=== PATIENT | male | born 1990 | race Caucasian/White ===

== ENCOUNTER 2017-04-03 20:41 | Emergency (ER) | payer OTHER ==
[2017-04-03] MEDS ORDERED: IBUPROFEN 800 MG TABLET PO ONE (23:27)
--- NOTE | 2017-04-03 23:32 | ER Document Report ---
ED General - General Chief Complaint: Chest Pain Stated Complaint: CHEST PAIN,SHORTNESS OF BREATH Time seen by provider: 23:07 Mode of Arrival: Ambulatory Information source: Patient TRAVEL OUTSIDE OF THE [place] IN LAST 30 DAYS: No - HPI Notes: Patient is a otherwise healthy 26-year-old white male [employer] presents to the emergency department with report of intermittent episodes of chest pain that he' s had for several months, occurring more at rest and when he "thinks about it". Patient exercises on a regular interval at an intense rate., and he reports no specific exertional component to his chest pain. He does describe a very minimal nonproductive cough with some seasonal allergy symptoms. He also reports some left jaw pain that he localizes to the left TMJ region that is worse after chewing. He denies any dental pain. He reports no dyspnea or nausea. He denies any fever or chills. He's been seen previously for chest pain and had a troponin of 0.01 by his report and the troponin was unchanged on repeat evaluation. He reported otherwise negative lab work and a normal chest x-ray. Family history no cardiac disease. Patient's a nonsmoker. Past Medical History - General Information source: Patient - Social History Smoking Status: Never Smoker Cigarette use (# per day): No Smoking Education Provided: No Frequency of alcohol use: Occasional Drug Abuse: None Lives with: Spouse/Significant other Family History: None. denies: CAD Patient has suicidal ideation: No Patient has homicidal ideation: No Renal/ Medical History: Denies: Hx Peritoneal Dialysis Review of Systems - Review of Systems Notes: REVIEW OF SYSTEMS: CONSTITUTIONAL : Denies fever, chills, or sweats. Denies recent illness. EENT: Denies eye, ear, throat, or mouth pain or symptoms. Denies nasal or sinus congestion or discharge. Denies throat, tongue, or mouth swelling or difficulty swallowing. CARDIOVASCULAR: Denies palpitations or racing or irregular heart beat. Denies ankle edema. RESPIRATORY: Denies cough, cold, or chest congestion. Denies shortness of breath, difficulty breathing, or wheezing. GASTROINTESTINAL: Denies abdominal pain or distention. Denies nausea, vomiting , or diarrhea. Denies blood in vomitus, stools, or per rectum. Denies black, tarry stools. Denies constipation. GENITOURINARY: Denies difficulty urinating, painful urination, burning, frequency, blood in urine, or discharge. MUSCULOSKELETAL: Denies back or neck pain or stiffness. Denies joint pain or swelling. SKIN: Denies rash, lesions or sores. HEMATOLOGIC : Denies easy bruising or bleeding. LYMPHATIC: Denies swollen, enlarged glands. NEUROLOGICAL: Denies confusion or altered mental status. Denies passing out or loss of consciousness. Denies dizziness or lightheadedness. Denies headache. Denies weakness or paralysis or loss of use of either side. Denies problems with gait or speech. Denies sensory loss, numbness, or tingling. Denies seizures. PSYCHIATRIC: Denies depression, suicidal ideation, or homicidal ideation. Patient does report some anxiety. ALL OTHER SYSTEMS REVIEWED AND NEGATIVE. Dictation was performed using [employer] voice recognition software Physical Exam - Vital signs Vitals: Temp Pulse Resp BP Pulse Ox 98.2 F 66 18 145/87 H 100 04/03/17 21:49 04/03/17 21:49 04/03/17 21:49 04/03/17 21:49 04/03/17 21:49 - Notes Notes: PHYSICAL EXAMINATION: GENERAL: Well-appearing, well-nourished and in no acute distress. HEAD: Atraumatic, normocephalic. EYES: Pupils equal round and reactive to light, extraocular movements intact, sclera anicteric, conjunctiva are normal. ENT: Nares patent, oropharynx clear without exudates. Moist mucous membranes. Patient has some left TMJ pain on exam. No erythema. Dentition is intact and good. No evidence for any grinding of the teeth. NECK: Normal range of motion, supple without lymphadenopathy LUNGS: Breath sounds clear to auscultation bilaterally and equal. No wheezes rales or rhonchi. HEART: Regular rate and rhythm without murmurs. ABDOMEN: Soft, nontender, nondistended abdomen. No guarding, no rebound. No masses appreciated. Musculoskeletal: Normal range of motion, no pitting or edema. No cyanosis. NEUROLOGICAL: Cranial nerves grossly intact. Normal speech, normal gait. Normal sensory, motor exams PSYCH: Normal mood, normal affect. SKIN: Warm, Dry, normal turgor, no rashes or lesions noted. Course - Re-evaluation Re-evalutation: 04/04/17 01:22 X-ray and labs and EKG are normal. There is no evidence for hypertensive cardiomyopathy or acute ischemia or electrolyte imbalance or anemia or pneumonia. Question a stress component. We will treat for allergic rhinitis and advise an outpatient echocardiogram and will treat for TMJ. 04/04/17 01:23 Repeat blood pressure 123/71. - Vital Signs Vital signs: Temp Pulse Resp BP Pulse Ox 98.2 F 66 16 145/87 H 100 04/03/17 21:49 04/03/17 21:49 04/03/17 23:17 04/03/17 21:49 04/03/17 23:26 - Laboratory Result Diagrams: 04/04/17 00:09 04/04/17 00:09 Laboratory results interpreted by me: 04/04/17 00:09 BUN 27 H - EKG Interpretation by Il EKG shows normal: Sinus rhythm Rate: Normal Additional EKG results interpreted by ok: 04/03/17 23:31 EKG as interpreted by ok showed normal sinus rhythm heart rate of 73. Patient was borderline for left ventricular hypertrophy on exam. There is no gross evidence for acute MS or ischemia. There is no old EKG available for comparison. Patient denied any chest pain while in the emergency department. He was given ibuprofen for left TMJ pain. Discharge - Discharge Clinical Impression: TMJ (temporomandibular joint syndrome) Seasonal allergic rhinitis Qualifiers: Allergic rhinitis trigger: pollen Qualified Code(s): J30.1 - Allergic rhinitis due to pollen Chest pain Qualifiers: Chest pain type: unspecified Qualified Code(s): R07.9 - Chest pain, unspecified Condition: Stable Disposition: HOME, SELF-CARE Instructions: Chest Pain of Unclear Cause ([facility]), Non-Sedating Prescription Antihistamine ([facility]) Additional Instructions: Temporomandibular Joint Syndrome (TMJ) You have TMJ syndrome. TMJ syndrome is caused by injury or degeneration of the temporomandibular joint, where the jaw joins the skull. Symptoms can include pain in the christianity or in front of the ear, headaches, clicking with jaw motion, locking of the jaw, and trouble fitting the teeth together. Some cases of TMJ syndrome go away with antiinflammatory medicine. Others require surgery. Sometimes a dental appliance at night helps. You may require special x-rays to evaluate the joint. If the symptoms resolve quickly, you may not need further care. If symptoms are chronic or recurrent, we'll refer you to a specialist for evaluation. The joint should be rested. Stay on a diet that requires no chewing -- such as milkshakes, applesauce, and puddings. Avoid any motion of the jaw which provokes pain. Periodic ice packs help decrease swelling and pain. You should follow up as instructed, and call the physician if you have any problems. Prescriptions: Cyclobenzaprine HCl [Flexeril 10 mg Tablet] 10 mg PO QHS #30 tablet Ibuprofen 800 mg PO Q8HP PRN #60 tablet PRN Reason: Loratadine [Claritin 10 mg Tablet] 10 mg PO DAILY #30 tablet Forms: Return to Work
[2017-04-04 00:22] LABS: ABSOLUTE EOSINOPHILS # (AUTO) 0.4 10^3/uL (0.0-0.6); ABSOLUTE LYMPHOCYTES (AUTO) 3.4 10^3/uL (0.5-4.7); ABSOLUTE MONOCYTES (AUTO) 0.7 10^3/uL (0.1-1.4); ABSOLUTE NEUT (AUTO) 3.4 10^3/uL (1.7-8.2); BASOPHILS % (AUTO) 0.2 % (0-2); EOSINOPHILS % (AUTO) 5.2 % (0-6); HEMATOCRIT 45.7 % (37.9-51.0); HEMOGLOBIN 16.4 g/dL (13.5-17.0); HGB HCT DIFFERENCE 3.5; LYMPHOCYTES % (AUTO) 42.9 % (13-45); MEAN CORPUSCULAR HEMOGLOBIN 31.9 pg (27.0-33.4); MEAN CORPUSCULAR HGB CONC 35.8 g/dL (32.0-36.0); MEAN CORPUSCULAR VOLUME 89 fl (80-97); MONOCYTES % (AUTO) 8.5 % (3-13); RED BLOOD COUNT 5.13 10^6/uL (4.35-5.55); RED CELL DISTRIBUTION WIDTH 12.7 % (11.5-14.0); SEGMENTED NEUTROPHILS % (AUTO) 43.2 % (42-78); WHITE BLOOD COUNT 7.9 10^3/uL (4.0-10.5)
[2017-04-04 00:38] LABS: ALANINE AMINOTRANSFERASE 44 U/L (21-72); ALBUMIN 4.7 g/dL (3.5-5.0); ALKALINE PHOSPHATASE 55 U/L (38-126); ANION GAP 15 (5-19); ASPARTATE AMINO TRANSFERASE 45 U/L (17-59); BILIRUBIN,DIRECT 0.1 mg/dL (0.0-0.4); BILIRUBIN,TOTAL 0.5 mg/dL (0.2-1.3); BLOOD UREA NITROGEN 27 mg/dL (7-20); CALCIUM 9.9 mg/dL (8.4-10.2); CARBON DIOXIDE 23 mmol/L (22-30); CHLORIDE 102 mmol/L (98-107); CREATININE RESULT 1.16 mg/dL (0.52-1.25); GLUCOSE 94 mg/dL (75-110); POTASSIUM 4.4 mmol/L (3.6-5.0); TOTAL PROTEIN 7.5 g/dL (6.3-8.2)
[2017-04-04 00:48] LABS: CREATINE KINASE MB 2.33 ng/mL (<4.55)
[2017-04-04 00:49] LABS: TROPONIN I < 0.012 ng/mL
[2017-04-04 03:02] VITALS: BP 124/87
--- NOTE | 2017-04-04 08:15 | EKG REPORT ---
SEVERITY:- ABNORMAL ECG - SINUS RHYTHM PROBABLE LEFT VENTRICULAR HYPERTROPHY : Confirmed by: Ryan Mckeon MD 04-Apr-2017 08:14:41
== END 2017-04-04 03:02 | disposition home or self-care (01) ==
LOC: ER 20:41
DX: R07.9 Chest pain, unspecified (principal); M26.622 Arthralgia of left temporomandibular joint; J30.1 Allergic rhinitis due to pollen; R05 Cough; F41.9 Anxiety disorder, unspecified
CPT/HCPCS: 36415; 71020; 80053; 82553; 83735; 84484; 85025; 93005; 93010; 99285

== ENCOUNTER 2018-08-06 08:04 | Emergency (ER) | payer OTHER ==
[2018-08-06 08:09] VITALS: BP 147/75
--- NOTE | 2018-08-06 08:17 | ER Document Report ---
HPI - HPI Patient complains to provider of: worried he has blood clot Onset: Other - 3 days Pain Level: 2 Context: 28 yo [facility] [place] c/o crampy left calf pain. Lifts weights but did not do any leg work after it started to hurt. Did 3.5 mile run on Saturday. No ches pain or SOB. Mom is Doctor in another state and she told him to get checked since he was so worried. Associated Symptoms: None Exacerbated by: Denies Relieved by: Denies - ROS ROS below otherwise negative: Yes Systems Reviewed and Negative: Yes All other systems reviewed and negative Past Medical History - General Information source: Patient - Social History Smoking Status: Never Smoker Occupation: [employer] [facility] [place] Lives with: Family Family History: None - Medical History Medical History: Negative Renal/ Medical History: Denies: Hx Peritoneal Dialysis Surgical Hx: Negative Vertical Provider Document - CONSTITUTIONAL Agree With Documented VS: Yes Exam Limitations: No Limitations General Appearance: No Apparent Distress - INFECTION CONTROL TRAVEL OUTSIDE OF THE [place] IN LAST 30 DAYS: No - MUSCULOSKELETAL/EXTREMETIES Musculoskeletal/Extremeties: MAEW, FROM, Tender - mid posterior left calf muscle. negative: Edema, Eccymosis - NEURO Level of Consciousness: Awake Motor/Sensory: No Motor Deficit, No Sensory Deficit Notes: 2+ DP Course - Re-evaluation Re-evalutation: 08/06/18 10:50 Prelim venous Doppler ultrasound reading is negative Dr. Aileen Becerril will be calling with the results patient states he will call me back for the reading 08/06/18 13:20 final report negative per dr becerril, spoke with patient over the phone to give him the results. - Vital Signs Vital signs: Temp Pulse Resp BP Pulse Ox 97.6 F 61 14 147/75 H 99 08/06/18 08:08 08/06/18 08:08 08/06/18 08:08 08/06/18 08:08 08/06/18 08:08 Discharge - Discharge Clinical Impression: Left calf pain Condition: Good Disposition: HOME, SELF-CARE Instructions: Acetaminophen, Ibuprofen (General) ([facility]), Warm Packs ([facility]) Additional Instructions: Warm compress [place] Return to the emergency room any concerns Call me in 2 hours for the venous Doppler ultrasound result at [phone] Forms: Return to Work
--- NOTE | 2018-08-06 12:25 | XCELERA REPORT ---
[address] [place] [facility] [id number] Lower Extremity Venous Evaluation Procedure: Color flow and duplex imaging of the veins of the left lower extremity as well as the right Common Femoral vein. Right Sided Venous Evaluation The right common femoral vein is fully compressible. Spontaneous and phasic flow is present in the right common femoral vein. Left Sided Venous Evaluation Normal vessel filling wall to wall, compression and augmentation as well as Colour flow down to the infrageniculate veins. Interpretation Summary No duplex evidence of DVT or obstruction in the left lower extremity nor in the right Common Femoral vein. Name: SATINDER DÍAZ Age: 28 yrs Gender: Male : 1990 Patient Status: Emergency Patient Location: ER Study Date: 08/06/2018 10:19 AM Reason For Study: left leg Ordering Physician: VIKRAM ARSHAD Performed By: Lynn Alvarado : VIKRAM ARSHAD > Jorgito Becerril
== END 2018-08-06 10:56 | disposition home or self-care (01) ==
LOC: ER 08:04
DX: M79.662 Pain in left lower leg (principal)
CPT/HCPCS: 93971; 99284

== ENCOUNTER 2019-01-19 13:46 | Emergency (ER) | payer OTHER ==
[2019-01-19 14:32] VITALS: BP 146/70
--- NOTE | 2019-01-19 15:44 | ER Document Report ---
ED General - General Chief Complaint: Abscess Stated Complaint: POSSIBLE ABSCESS/TAILBONE Time Seen by Provider: 01/19/19 15:24 Primary Care Provider: ANDREAS LONDON MD [KENDALL SOSA] - Follow up tomorrow Notes: Patient is a 28-year-old male who presents to the emergency department with a chief complaint of an abscess at his coccyx area and right outer buttock area close to his anus, but not in his anus. He has had pain in the area of the past 4 days. He exercises frequently and has had history of abscesses in the past. He denies any fever, night sweats, or any other problems at this time. He has no past medical history. He states he does sweat a lot when he exercises. TRAVEL OUTSIDE OF THE [place] IN LAST 30 DAYS: No - Related Data Allergies/Adverse Reactions: No Known Allergies Allergy (Verified 01/19/19 13:49) Past Medical History - Social History Smoking Status: Never Smoker Frequency of alcohol use: Rare Drug Abuse: None Family History: None Renal/ Medical History: Denies: Hx Peritoneal Dialysis Review of Systems - Review of Systems Notes: REVIEW OF SYSTEMS: CONSTITUTIONAL : Denies recent illness. Denies recent unintentional weight loss. Denies fever, chills, or sweats. EENT: Denies eye, ear, throat, or mouth pain, discharge, or symptoms. Denies nasal or sinus congestion. CARDIOVASCULAR: Denies chest pain. RESPIRATORY: Denies shortness of breath, cough, congestion, difficulty breathing, or wheezing. GASTROINTESTINAL: Denies nausea, vomiting, and diarrhea. Denies abdominal pain. Denies constipation. GENITOURINARY: Denies difficulty urinating, burning, blood in urine, urgency or frequency. MUSCULOSKELETAL: Denies neck and back pain. Denies joint pain or swelling. SKIN: See HPI HEMATOLOGIC : Denies easy bruising or bleeding. LYMPHATIC: Denies swollen, painful, enlarged glands. NEUROLOGICAL: Denies no numbness or tingling denies weakness. Denies headache. Denies altered mental status. Denies alteration in speech. PSYCHIATRIC: Denies stress, anxiety, alteration in sleep patterns, or depression. All other systems reviewed and negative. Physical Exam - Vital signs Vitals: Temp Pulse Resp BP Pulse Ox 98.2 F 67 18 146/70 H 100 01/19/19 14:29 01/19/19 14:29 01/19/19 14:29 01/19/19 14:29 01/19/19 14:29 - Notes Notes: PHYSICAL EXAMINATION: GENERAL: Appears well, healthy, well-nourished, no acute distress. HEAD: Normocephalic, atraumatic. EYES: PERRL, conjunctiva normal, all extraocular movements intact, sclera nonicteric ENT: Moist mucous membranes. NECK: Supple, no noticeable swelling, redness, rash. Normal range of motion. LUNGS: Equal breath sounds bilaterally and clear to auscultation. No wheezes rales or rhonchi. CARDIOVASCULAR: S1-S2, regular rate, regular rhythm. Radial pulses 2+, normal. ABDOMEN: Normoactive bowel sounds. Soft, nontender, no guarding, no rebound tenderness, and no masses palpated. EXTREMITIES: Normal strength and range of motion, no pitting or edema. No cyanosis. NEUROLOGICAL: Moves all extremities upon command. Strength 5/5 in all extremities. PSYCH: Normal mood, normal affect. SKIN: Warm, dry. No rash, lesions, ulcerations noted. Normal skin turgor. Abscess noted via ultrasound at coccyx area and right buttock. Course - Re-evaluation Re-evalutation: 01/19/19 17:47 Differential diagnosis includes but normal limited to: abscess, dermoid cyst, sebaceous cyst, furnucle, or others. Based on patient's physical exam and history, this is an abscess. It was drained in the ER. Only a little drainage was noted. There is no surrounding cellulitis. I do not believe the patient has underlying necrotizing fasciitis. Patient has moderate risk factors for MRSA. Based on patient's physical exam and these factors, they will be treated with antibiotics because the location of his abscess. Bedside ultrasound was done and a fluid filled sac was noted to both his coccyx area and right buttock. I called Dr. Coy Monet to bedside to confirm. He agrees that the one near his coccyx needs to be drained, but the one that is in his right buttock is too small to drain. Based off exam, I do not suspect the patient has a perirectal abcess. Patient's abscess was drained and he tolerated the procedure well. He had only a small amount of drainage noted. He will be started on doxycycline he will follow-up with general surgery in the morning. Verbal discharge instructions were given to the patient. They verbalized understanding. They are stable for discharge. - Vital Signs Vital signs: Temp Pulse Resp BP Pulse Ox 98.2 F 67 18 146/70 H 100 01/19/19 14:29 01/19/19 14:29 01/19/19 14:29 01/19/19 14:29 01/19/19 14:29 Discharge - Discharge Clinical Impression: Abscess Condition: Stable Disposition: HOME, SELF-CARE Instructions: Post Incision and Drainage Additional Instructions: You were seen for an abscess that required drainage. Please clean this area with soap and water twice daily. You may do sitz bath to help the area. You have been given antibiotics, take your antibiotics as prescribed. Please follow-up with general surgery in the morning regards to this visit, as you are abscess and may need to be removed. Dress the area after each cleaning. Please return if you develop fever, vomiting, the pain at the site worsens, you notice spreading redness from the area, or you have any other symptoms that are concerning to you. Prescriptions: Doxycycline Hyclate 100 mg PO BID #14 capsule Referrals: ANDREAS LONDON MD [KENDALL SOSA] - Follow up tomorrow
--- NOTE | 2019-01-19 15:49 | ER Document Report ---
Doctor's Note Notes: I personally and independently obtained patient history and examined the patient in conjunction with the APC and agree with the assessment, treatment plan and disposition of the patient as recorded by the APC, and have reviewed the APC's note. HISTORY OF PRESENT ILLNESS: Patient is a 28-year-old male that presents to the emergency department for chief complaint of abscess on his buttocks. Patient states he noticed this a few days ago and got progressively worse so he decided come to the emergency department. ROS: Constitutional: Negative for fever. Cardiovascular: Negative for chest pain. Respiratory: Negative for shortness of breath. Gastrointestinal: Negative for vomiting or abdominal pain Musculoskeletal: Negative for arm, leg or back pain Skin: Negative for rash. Neurological: Negative for weakness or numbness. Other than noted above, the 12 point review of systems was reviewed with the patient and were negative, all pertinent findings are included in the HPI. PHYSICAL EXAMINATION: Vital signs reviewed, nursing noted reviewed. GENERAL: Well-appearing, well-nourished and in no acute distress. HEAD: Atraumatic, normocephalic. EYES: Eyes appear normal, conjunctiva are normal. ENT: nares patent, oropharynx clear without exudates. Moist mucous membranes. NECK: Normal range of motion, supple without lymphadenopathy LUNGS: Breath sounds clear to auscultation bilaterally and equal. No wheezes rales or rhonchi. HEART: Regular rate and rhythm without murmurs EXTREMITIES: Nontender, good range of motion, no pitting or edema. NEUROLOGICAL: No focal neurological deficits. Moves all extremities spontaneously Motor and sensory grossly intact on exam. PSYCH: Normal mood, normal affect. SKIN: Warm, Dry, normal turgor, there is a small abscess noted in the superior aspect of the gluteal cleft, and another on the right buttocks in the gluteal cleft as well, this is very minimal in size, both were visualized under ultrasound. MEDICAL DECISION MAKING: Patient's abscesses were visualized under ultrasound, the one in his superior gluteal cleft, that was midline, did appear drainable, and advised I&D, which was performed, patient prescribed antibiotics and advised follow-up with surgery. Please review detail APC documentation. *Note is created using voice recognition software and may contain spelling, syntax or grammatical errors.
== END 2019-01-19 19:04 | disposition home or self-care (01) ==
LOC: ER 13:46
DX: L02.31 Cutaneous abscess of buttock (principal)
CPT/HCPCS: 99283